=== PATIENT | male | born 2000 | race American Indian/Alaskan Native ===

== ENCOUNTER 2020-11-11 00:14 | Emergency (ER) | payer SELFPAY ==
--- NOTE | 2020-11-11 08:42 | Event Note ---
ED Screening Note Date of service: 11/11/20 Time: 08:40 ED Screening Note: pt came by EMS. Pt states he is here because he needs help with his depression. He states he feels depressed every day and last night he got into an argument with his mom and that made it worse. He states he was having thoughts of hurting himself at the time of argument. He states he has been having issues with depression since he was 15. The last time he was on meds was when he was 17. He does not currently have PCP or pyschiatrist. This initial assessment/diagnostic orders/clinical plan/treatment(s) is/are subject to change based on patients health status, clinical progression and re- assessment by fellow clinical providers in the ED. Further treatment and workup at subsequent clinical providers discretion. Patient/guardian urged not to elope from the ED as their condition may be serious if not clinically assessed and managed. Initial orders include: psych orders
--- NOTE | 2020-11-11 09:05 | Emergency Department Report ---
ED Psych HPI - General Chief Complaint: Medical Clearance Stated Complaint: ANXIETY Time Seen by Provider: 11/11/20 08:46 Source: patient Mode of arrival: Ambulatory - History of Present Illness Initial Comments: Patient is 20 years old male with history of bipolar disorder. Patient brought to the emergency room via EMS from home after patient had an argument with his mother. Patient stated that he did not take his medicine since he was 17 years old. Patient stated that he had thoughts of hurting himself for the last few days especially when he had an argument with his mother however he denied any suicidal thoughts now. Patient stated that he thought was overdosing on med ication. Patient denied any homicidal ideation. No visual or auditory hallucination. MD Complaint: suicidal ideation, feels depressed -: days(s) Associated Psychiatric Symptoms: depression, suicidal ideation History of same: Yes Associated Symptoms: denies other symptoms If Self Harm: admits thoughts of, has plan - Related Data Previous Rx's Medication Instructions Recorded Last Taken Type Sertraline [Zoloft] 25 mg PO QDAY 30 Days #30 tab 11/11/20 Unknown Rx traZODone [Desyrel] 50 mg PO QHS 30 Days #30 tab 11/11/20 Unknown Rx Allergies Allergy/AdvReac Type Severity Reaction Status Date / Time No Known Allergies Allergy Verified 11/11/20 08:54 ED Review of Systems ROS: Stated complaint: ANXIETY Other details as noted in HPI Comment: All other systems reviewed and negative Constitutional: denies: chills, fever Respiratory: denies: cough, shortness of breath, SOB with exertion Cardiovascular: denies: chest pain, palpitations, dyspnea on exertion Gastrointestinal: denies: abdominal pain, nausea, vomiting Musculoskeletal: denies: back pain Neurological: denies: headache, weakness, numbness, paresthesias, confusion, abnormal gait Psychiatric: depression, suicidal thoughts. denies: auditory hallucinations, visual hallucinations, homicidal thoughts Hematological/Lymphatic: denies: easy bruising ED Past Medical Hx - Past Medical History Previous Medical History?: Yes Hx Hypertension: Yes (Depression) - Surgical History Past Surgical History?: No - Social History Smoking Status: Current Every Day Smoker Substance Use Type: Marijuana - Medications Home Medications: Home Medications Medication Instructions Recorded Confirmed Last Taken Type Sertraline [Zoloft] 25 mg PO QDAY 30 Days #30 tab 07/25/21 Unknown Rx traZODone [Desyrel] 50 mg PO QHS 30 Days #30 tab 11/11/20 Unknown Rx ED Physical Exam - General Limitations: No Limitations General appearance: alert, in no apparent distress - Head Head exam: Present: atraumatic, normocephalic, normal inspection - Eye Eye exam: Present: normal appearance, PERRL - ENT ENT exam: Present: normal exam, normal orophraynx, mucous membranes moist - Neck Neck exam: Present: normal inspection, full ROM. Absent: tenderness, meningismus - Respiratory Respiratory exam: Present: normal lung sounds bilaterally - Cardiovascular Cardiovascular Exam: Present: regular rate, normal rhythm, normal heart sounds - GI/Abdominal GI/Abdominal exam: Present: soft, normal bowel sounds. Absent: distended, tenderness, guarding, rebound, rigid, organomegaly, mass, bruit, pulsatile mass, hernia - Extremities Exam Extremities exam: Present: normal inspection, full ROM, normal capillary refill. Absent: tenderness, pedal edema, joint swelling, calf tenderness - Back Exam Back exam: Present: normal inspection, full ROM. Absent: CVA tenderness (R), CVA tenderness (L) - Neurological Exam Neurological exam: Present: alert, oriented X3, CN II-XII intact, normal gait, reflexes normal. Absent: motor sensory deficit - Psychiatric Psychiatric exam: Present: depressed, suicidal ideation. Absent: homicidal ideation - Skin Skin exam: Present: warm, intact, normal color ED Course Vital Signs 11/11/20 11/11/20 05:56 08:59 Temperature 98.5 F Pulse Rate 57 L 66 Respiratory 16 16 Rate Blood Pressure 130/85 Blood Pressure 129/84 [Left] O2 Sat by Pulse 100 98 Oximetry ED Medical Decision Making - Lab Data Result diagrams: 11/11/20 08:47 11/11/20 08:47 - Medical Decision Making Patient is 20 years old male with history of bipolar disorder. Patient brought to the emergency room via EMS from home after patient had an argument with his mother. Patient stated that he did not take his medicine since he was 17 years old. Patient stated that he had thoughts of hurting himself for the last few days especially when he had an argument with his mother however he denied any suicidal thoughts now. Patient stated that he thought was overdosing on medication. Patient denied any homicidal ideation. No visual or auditory hallucination. Labs reviewed and is unremarkable. Patient has been evaluated by our psychiatric team and advised patient can be discharged home to follow-up as an outpatient. Patient handed a prescription for Zoloft and Desyrel written by psychiatric team. Patient is currently denying any suicidal or homicidal ideation. No visual or auditory hallucination. Patient is medically and psychiatrically stable for discharge. Critical care attestation.: If time is entered above; I have spent that time in minutes in the direct care of this critically ill patient, excluding procedure time. ED Disposition Clinical Impression: Depression, Suicidal ideation Disposition: DC-01 TO HOME OR SELFCARE Is pt being admited?: No Condition: Stable Instructions: Persistent Depressive Disorder, Adult, Supporting Someone With Depression, Suicidal Feelings: How to Help Yourself Prescriptions: traZODone [Desyrel] 50 mg PO QHS 30 Days #30 tab Sertraline [Zoloft] 25 mg PO QDAY 30 Days #30 tab Referrals: PRIMARY CARE, [Primary Care Provider] - 3-5 Days
[2020-11-11 09:42] LABS: BUN/Creatinine Ratio 14; Basophils # (Auto) 0.1 K/mm3 (0.0-0.1); Basophils % (Auto) 0.8 % (0.0-1.8); Blood Urea Nitrogen 11 mg/dL (9-20); Eosinophils # (Auto) 0.3 K/mm3 (0.0-0.4); Eosinophils % (Auto) 3.3 % (0.0-4.3); Hematocrit 46.2 % (35.5-45.6); Hemoglobin 16.2 gm/dl (11.8-15.2); Hemolysis Index 14; Lymphocytes # (Auto) 2.9 K/mm3 (1.2-5.4); Mean Corpuscular HGB Conc 35 % (32-34); Mean Corpuscular Volume 88 fl (84-94); Monocytes % (Auto) 10.7 % (0.0-7.3); Red Blood Count 5.26 M/mm3 (3.65-5.03); Red Cell Distribution Width 13.4 % (13.2-15.2)
[2020-11-11 09:46] LABS: Platelet Count 87 K/mm3 (140-440)
--- NOTE | 2020-11-11 12:19 | Consultation ---
History of Present Illness - Reason for Consult Consult date: 11/11/20 Reason for consult: psychiatric mental evaluation - History of Present Psychiatric Illness ED Note: Patient is 20 years old male with history of bipolar disorder. Patient brought to the emergency room via EMS from home after patient had an argument with his mother. Patient stated that he did not take his medicine since he was 17 years old. Patient stated that he had thoughts of hurting himself for the last few days especially when he had an argument with his mother however he denied any suicidal thoughts now. Patient stated that he thought was overdosing on medication. Patient denied any homicidal ideation. No visual or auditory hallucination. Tati Jefferson is a 20 year old male with a history of Bipolar disorder. In my interview with the patient, he reports getting into an argument with his mother yesterday and he called the 911 stating he had suicidal ideation. The patient reports that his mother is a trigger for him. He reports that he was living with his uncle who recently and he moved back in with his mother. The patient states that he has been off psychotropic medications for the past 3-4 year. He reports having intermittent suicidal ideation but denies having any today. He denies any hallucinations. Diagnoses: Bipolar Suicide attempts or Self-harm behavior: Denies Prior psychiatric hospitalizations: Yes Substance Abuse history: marijuana Previous psychiatric medications tried: Zoloft Outpatient treatment: Yes PAST MEDICAL HISTORY: none reported Family Psychiatric History: None reported or documented SOCIAL HISTORY Marital Status: Single Living Arrangement:Lives with mother Employment Status: unemployed Access to guns/weapons: Denies Education:11th grade History of Abuse: none reported Legal History: none reported REVIEW OF SYSTEMS Constitutional: Negative for weight loss ENT: Negative for stridor Respiratory: Negative for cough or hemoptysis All other systems reviewed and are negative MENTAL STATUS EXAMINATION General Appearance and Behavior: Age appropriate, good hygiene, wearing appropriate clothes, sleeping, cooperative Cooperation: Participating/engaged Psychomotor Behavior: unremarkable and within normal limits Mood: "good" Affect and affective range: congruent with mood Thought Process: goal directed Thought Content: No SI Speech: Normal volume, Regular rate and rhythm, Suicidal Ideation:Denies Homicidal Ideation: Denies Hallucinations:Denies Delusions: None elicited Impulse Control: Unimpaired Insight and Judgment: Limited insight and judgment, Memory: Normal, Attention: Normal Orientation: Alert, oriented Assessment and Plan (1)Bipolar disorder, current episode depressed, moderate- F31.32 Current Visit: Yes Status: Acute Treatment Plan Start Zoloft 25mg po daily Trazodone 50mg po QHS The patient to comply with previously prescribed medications Risks, benefits and alternatives of medications discussed with the patient, questions answered and consent obtained from patient. PSYCHOTHERAPY: Supportive psychotherapy provided MEDICAL: Per primary team DELIRIUM PRECAUTIONS: Please re-orient patient frequently, keep lights on during the day, and minimize benzodiazepines and opiates as these medications could worsen patient's confusion. ELEMENTARY ESL TEACHER: Defer to primary DISPOSITION: Do not recommend acute inpatient psychiatric hospitalization at this time. FOLLOW-UP: Will sign off. Patient understands to follow up with psychiatric outpatient. Thank you for the consult. Please contact with any questions and/or concerns. Medications and Allergies Allergies Allergy/AdvReac Type Severity Reaction Status Date / Time No Known Allergies Allergy Verified 11/11/20 08:54 Home Medications Medication Instructions Recorded Confirmed Last Taken Type Sertraline [Zoloft] 25 mg PO QDAY 30 Days #30 tab 11/11/20 Unknown Rx traZODone [Desyrel] 50 mg PO QHS 30 Days #30 tab 11/11/20 Unknown Rx Mental Status Exam - Vital signs Last Vital Signs Temp 98.5 F 11/11/20 05:56 Pulse 66 11/11/20 08:59 Resp 16 11/11/20 08:59 BP 129/84 11/11/20 08:59 Pulse Ox 98 11/11/20 08:59 Results Result Diagrams: 11/11/20 08:47 11/11/20 08:47 Abnormal lab results 11/11/20 11/11/20 11/11/20 Range/Units 08:47 08:47 08:47 RBC 5.26 H (3.65-5.03) M/mm3 Hgb 16.2 H (11.8-15.2) gm/dl Hct 46.2 H (35.5-45.6) % MCHC 35 H (32-34) % Plt Count 87 L (140-440) K/mm3 Ramsey % (Auto) 10.7 H (0.0-7.3) % Ramsey # (Auto) 1.0 H (0.0-0.8) K/mm3 Carbon Dioxide 32 H (22-30) mmol/L Salicylates < 0.3 L (2.8-20.0) mg/dL Acetaminophen (10.0-30.0) ug/mL 11/11/20 Range/Units 08:47 RBC (3.65-5.03) M/mm3 Hgb (11.8-15.2) gm/dl Hct (35.5-45.6) % MCHC (32-34) % Plt Count (140-440) K/mm3 Ramsey % (Auto) (0.0-7.3) % Ramsey # (Auto) (0.0-0.8) K/mm3 Carbon Dioxide (22-30) mmol/L Salicylates (2.8-20.0) mg/dL Acetaminophen 5.0 L (10.0-30.0) ug/mL All other labs normal.
[2020-11-11 13:45] VITALS: BP 118/79
== END 2020-11-11 13:44 | disposition home or self-care (01) ==
LOC: ED 00:14
DX: F32.9 Major depressive disorder, single episode, unspecified (principal); R45.851 Suicidal ideations; F17.200 Nicotine dependence, unspecified, uncomplicated
CPT/HCPCS: 36415; 80048; 80320; 84443; 85025; 99284; G0480